=== PATIENT | female | born 1995 | race Caucasian/White ===

== ENCOUNTER 2018-01-03 17:08 | Inpatient (IN) | payer OTHER ==
[2018-01-03] MEDS: ALBUTEROL 0.083% (NEB) 2.5 MG/3 ML AMP NEB (20:59)
[2018-01-03] MEDS: IPRATROPIUM (NEB) 0.5 MG/2.5 ML AMP NEB (20:59)
[2018-01-03] MEDS: DIPHENHYDRAMINE 50 MG INJ IV (21:07)
[2018-01-03] MEDS: FAMOTIDINE 20 MG INJ IV (21:07)
[2018-01-03] MEDS: EPINEPHrine 1 MG INJ IM ×2 (21:08→22:28)
[2018-01-03 21:10] LABS: ADD MAN DIFF? NO
[2018-01-03 21:11] LABS: BASOPHILS % 0.4 % (0.0-2.0); EOSINOPHILS # 0.2 10^3/ul (0.0-0.5); HEMATOCRIT 39.4 % (37.0-47.0); HEMOGLOBIN 13.5 g/dl (12.0-16.0); LYMPHOCYTES # 1.7 10^3/ul (0.8-2.9); LYMPHOCYTES % 30.7 % (18.0-55.0); MEAN CORPUSCULAR HGB CONC 34.3 g/dl (32.0-37.0); MEAN CORPUSCULAR VOLUME 81.6 fl (72.0-104.0); MEAN PLATELET VOLUME 8.8 fl (7.4-10.4); MONOCYTE # 0.5 10^3/ul (0.3-0.9); MONOCYTES % 9.4 % (0.0-13.0); NEUTROPHIL # 3.1 10^3/ul (1.6-7.5); NEUTROPHILS % 55.3 % (30.0-74.0); PLATELET COUNT 329 10^3/UL (140-415); RED BLOOD COUNT 4.83 10^6/ul (4.20-5.40); RED CELL DISTRIBUTION WIDTH 12.6 % (11.5-14.5)
[2018-01-03 21:11] LABS: WHITE BLOOD COUNT 5.5 10^3/ul (4.8-10.8)
[2018-01-03 21:28] LABS: INR 0.96; PROTIME 12.9 Sec (11.9-14.9)
[2018-01-03 21:29] LABS: PARTIAL THROMBOPLASTIN TIME 43.4 Sec (25.0-35.0)
[2018-01-03 21:31] LABS: MONOTEST Negative (NEG)
[2018-01-03 21:40] LABS: ALANINE AMINOTRANSFERASE 32 IU/L (13-69); ALBUMIN 4.6 g/dl (3.3-4.9); ALBUMIN/GLOBULIN RATIO 1.27; ALKALINE PHOSPHATASE 61 IU/L (42-121); ASPARTATE AMINO TRANSFERASE 20 IU/L (15-46); BILIRUBIN,INDIRECT 0.4 mg/dl (0-1.1); BILIRUBIN,TOTAL 0.4 mg/dl (0.2-1.3); BLOOD UREA NITROGEN 12 mg/dl (7-20); CALCIUM 9.7 mg/dl (8.4-10.2); CARBON DIOXIDE 27 mmol/L (21-31); CHLORIDE 105 mmol/L (97-110); CREATININE 0.63 mg/dl (0.44-1.00); GLUCOSE 87 mg/dl (70-220); POTASSIUM 4.3 mmol/L (3.5-5.1); TOTAL PROTEIN 8.2 g/dl (6.1-8.1)
[2018-01-03] MEDS: METHYLPREDNISOLONE 125 MG INJ IV (22:12)
[2018-01-03 23:05] LABS: ANION GAP 13 (8-16)
[2018-01-03 23:06] LABS: SODIUM 141 mmol/L (135-144)
[2018-01-04] MEDS: SOD CHLORIDE 0.9% 1,000 ML IV ×2 (02:16→14:46)
[2018-01-04] MEDS ORDERED: ONDANSETRON 4 MG INJ IV (02:30)
[2018-01-04] MEDS ORDERED: ACETAMINOPHEN 325 MG TAB PO (02:30)
[2018-01-04] MEDS ORDERED: NACL 0.9% 3 ML SYG IV (02:30)
[2018-01-04 05:50] LABS: ADD MAN DIFF? NO
[2018-01-04 05:58] LABS: ABNORMAL IP MESSAGE 1; BASOPHILS % 0.2 % (0.0-2.0); HEMATOCRIT 37.4 % (37.0-47.0); HEMOGLOBIN 12.6 g/dl (12.0-16.0); LYMPHOCYTES # 0.3 10^3/ul (0.8-2.9); LYMPHOCYTES % 5.1 % (18.0-55.0); MEAN CORPUSCULAR HEMOGLOBIN 27.4 pg (29.0-33.0); MEAN CORPUSCULAR HGB CONC 33.7 g/dl (32.0-37.0); MEAN CORPUSCULAR VOLUME 81.3 fl (72.0-104.0); MEAN PLATELET VOLUME 9.1 fl (7.4-10.4); MONOCYTES % 0.7 % (0.0-13.0); NEUTROPHIL # 5.7 10^3/ul (1.6-7.5); NEUTROPHILS % 93.8 % (30.0-74.0); PLATELET COUNT 322 10^3/UL (140-415); RED CELL DISTRIBUTION WIDTH 12.7 % (11.5-14.5)
[2018-01-04 05:58] LABS: WHITE BLOOD COUNT 6.1 10^3/ul (4.8-10.8)
[2018-01-04] MEDS: METHYLPREDNISOLONE 40 MG INJ IV ×2 (05:59→08:19)
[2018-01-04] MEDS: PANTOPRAZOLE 40 MG INJ IV (05:59)
[2018-01-04 06:03] LABS: POSITIVE DIFF @See below
[2018-01-04 06:32] LABS: ALANINE AMINOTRANSFERASE 25 IU/L (13-69); ALBUMIN 4.3 g/dl (3.3-4.9); ALBUMIN/GLOBULIN RATIO 1.22; ALKALINE PHOSPHATASE 56 IU/L (42-121); ANION GAP 20 (8-16); ASPARTATE AMINO TRANSFERASE 23 IU/L (15-46); BILIRUBIN,INDIRECT 0.4 mg/dl (0-1.1); BILIRUBIN,TOTAL 0.4 mg/dl (0.2-1.3); BLOOD UREA NITROGEN 10 mg/dl (7-20); CALCIUM 9.6 mg/dl (8.4-10.2); CARBON DIOXIDE 19 mmol/L (21-31); CHLORIDE 106 mmol/L (97-110); CHOLESTEROL 182 mg/dl (100-200); CREATININE 0.59 mg/dl (0.44-1.00); GLUCOSE 179 mg/dl (70-220); HDL CHOLESTEROL 45 mg/dl (33-83); LDL CHOLESTEROL,CALCULATED 127 mg/dl; MAGNESIUM 1.9 mg/dl (1.7-2.5); POTASSIUM 4.3 mmol/L (3.5-5.1); SODIUM 141 mmol/L (135-144); TOTAL PROTEIN 7.8 g/dl (6.1-8.1); TRIGLYCERIDES 49 mg/dl (0-149)
[2018-01-04 07:25] LABS: HEMOGLOBIN A1C 5.1 % (0-5.9)
[2018-01-04] MEDS: FAMOTIDINE 20 MG INJ IV (08:21)
[2018-01-04 14:07] LABS: ERYTHROCYTE SEDIMENTATION RATE 27 mm/Hr (0-20)
[2018-01-05 13:37] LABS: ANA SCREEN NEGATIVE (NEGATIVE)
== END 2018-01-04 19:29 | disposition home or self-care (01) | DRG 607 ==
LOC: MS3 01-04 00:52 → E/R 17:08
DX: L27.0 Generalized skin eruption due to drugs and medicaments taken internally (principal); M79.7 Fibromyalgia; T42.6X5A Adverse effect of other antiepileptic and sedative-hypnotic drugs, initial encounter
CPT/HCPCS: 36415; 80053; 80061; 83036; 83735; 84443; 85025; 85610; 85651; 85730; 86038; 86140; 86308; 87040; 87400; 87880; 94664; 96372; 96374; 96375; 99285-25